=== PATIENT | male | born 2000 | race African-American/Black ===

== ENCOUNTER 2023-06-20 20:41 | Emergency (ER) | payer OTHER ==
[~2023-06-20] VITALS: Ht 172.7 cm; Wt 76.6 kg
[2023-06-20] MEDS ORDERED: LORazepam 2 MG/ML 1ML VIAL IV STA ×2 (20:52→21:51)
[2023-06-20] MEDS ORDERED: NS 1,000 ML IV ONE (20:55)
[2023-06-20 21:19] LABS: VENOUS BASE EXCESS 0.6 (-2.0-2.0); VENOUS HCO3 25.2 MMOL/L (23.0-27.0); VENOUS O2 SATURATION 85.3 % (60.0-80.0); VENOUS PARTIAL PRESSURE CO2 40.3 mmHg (38.0-50.0); VENOUS PARTIAL PRESSURE O2 47.3 mmHg (30.0-50.0); VENOUS PH 7.414 UNITS (7.330-7.430); VENOUS STANDARD HCO3 24.7 MMOL/L; VENOUS TOTAL CO2 26.4 MMOL/L (24.0-28.0)
[2023-06-20 21:23] LABS: BASO # 0.1 10^3/uL (0.0-0.2); BASO % 0.4 % (0.0-1.0); EOS % 0.2 % (0.0-3.0); HEMATOCRIT 46.3 % (42.0-52.0); HEMOGLOBIN 15.5 g/dl (13.5-17.5); LYMPH # 1.3 10^3/uL (1.5-5.0); LYMPH % 10.2 % (24.0-44.0); MEAN CORPUSCULAR HEMOGLOBIN 27.3 pg (27.0-33.0); MEAN CORPUSCULAR HGB CONC 33.5 g/dl (32.0-36.5); MEAN CORPUSCULAR VOLUME 81.5 fl (80.0-96.0); MONO # 0.9 10^3/uL (0.0-0.8); MONO % 7.2 % (2.0-8.0); NEUTROPHILS # 10.3 10^3/uL (1.5-8.5); NEUTROPHILS % 81.8 % (36.0-66.0); PLATELET COUNT, AUTOMATED 234 10^3/uL (150-450); RED BLOOD COUNT 5.68 10^6/uL (4.30-6.10); WHITE BLOOD COUNT 12.6 10^3/uL (4.0-10.0)
[2023-06-20 21:52] LABS: AMPHETAMINES LEVEL URINE NEGATIVE (NEGATIVE); BARBITURATES URINE NEGATIVE (NEGATIVE); BENZODIAZEPINES URINE NEGATIVE (NEGATIVE); COCAINE METABOLITE URINE NEGATIVE (NEGATIVE)
[2023-06-20 21:53] LABS: CANNABINOIDS URINE NEGATIVE (NEGATIVE); METHADONE URINE NEGATIVE (NEGATIVE); OPIATES URINE NEGATIVE (NEGATIVE); PHENCYCLIDINE URINE NEGATIVE (NEGATIVE)
[2023-06-20 21:54] LABS: RSV AMPLIFICATION NEGATIVE (NEGATIVE)
[2023-06-20 21:56] LABS: CK-MB VALUE MASS < 1.0 NG/ML (<3.6); ETHYL ALCOHOL (ETHANOL) < 0.003 % (0.000-0.010)
[2023-06-20 21:57] LABS: ALBUMIN 4.5 G/DL (3.2-5.2); ALKALINE PHOSPHATASE 57 U/L (46-116); ALT/SGPT 33 U/L (7.0-40); AST/SGOT 40 U/L (<34); BILIRUBIN,DIRECT 0.2 MG/DL (<0.4); BILIRUBIN,TOTAL 0.5 MG/DL (0.3-1.2); BLOOD UREA NITROGEN 18 MG/DL (9-23); CALCIUM LEVEL 9.6 MG/DL (8.5-10.1); CARBON DIOXIDE LEVEL 24 MMOL/L (20-31); CHLORIDE LEVEL 106 MMOL/L (98-107); CREATININE FOR GFR 1.11 MG/DL (0.70-1.30); GLUCOSE, FASTING 88 MG/DL (60-100); POTASSIUM SERUM 4.5 MMOL/L (3.5-5.1); SALICYLATE LEVEL < 3.0 MG/DL (<30); SODIUM LEVEL 139 MMOL/L (136-145); TOTAL PROTEIN 7.5 G/DL (5.7-8.2)
[2023-06-20 21:58] LABS: OSMOLALITY SERUM 291 MOSM/KG (275-295)
[2023-06-20 21:59] LABS: THYROID STIMULATING HORMONE 2.439 uIU/ML (0.48-4.17)
[2023-06-20 22:21] LABS: CPK CREATINE PHOSPHOKINASE 1686 U/L (46-171); MB/CK RELATIVE INDEX 0.05 (< OR =4)
[2023-06-20] MEDS ORDERED: NS 2,300 ML in IV 1 EA IV ONE (22:25)
[2023-06-21 09:55] VITALS: BP 146/95; TEMP 98; O2SAT 100
== END 2023-06-21 10:14 | disposition home or self-care (01) ==
LOC: M ED 20:41 → EDBD 20:41 → M ED 06-21 10:14
DX: F16.99 Hallucinogen use, unspecified with unspecified hallucinogen-induced disorder (principal); R00.0 Tachycardia, unspecified
CPT/HCPCS: 36415; 51701; 70450; 72125; 80048; 80076; 80143; 80307; 81002; 82077; 82140; 82550; 82553; 82803; 83605; 83930; 84443; 84484; 85025; 87631; 93005; 93041; 94760; 96361; 96374; 96375; 99285; J2060